=== PATIENT | female | born 1965 | race Caucasian/White ===

== ENCOUNTER 2019-05-05 07:00 | Day surgery (SDC) | payer BC ==
[~2019-05-05] VITALS: Ht 170.2 cm; Wt 86.2 kg
[~2019-05-05 07:00] MED LIST: CEFAZOLIN SOD 1 GM in D5W 50 ML IV ONE
[2019-05-05 07:47] LABS: HCG,QUAL RESULT NEGATIVE (NEGATIVE)
[2019-05-05] MEDS ORDERED: D5/0.45 NS 1,000 ML IV SCH (12:42)
[2019-05-05] MEDS ORDERED: HYDROmorphone 1 MG INJ. 1 MG/ML AMPUL IVP PRN (12:45)
[2019-05-05] MEDS ORDERED: HYDROcodone/ACETAMIN 5-325 MG TAB (NORCO/ VICODIN) PO PRN ×2 (12:45)
[2019-05-05] MEDS ORDERED: SEVOFLURANE 15 MIN GAS INH ONE (12:55)
[2019-05-05] MEDS ORDERED: fentaNYL CITRATE/PF 100 MCG/2 ML AMP ONE (12:55)
[2019-05-05] MEDS ORDERED: MIDAZOLAM HCL 5 MG/ML VIAL (VERSED) IV ONE (12:55)
[2019-05-05] MEDS ORDERED: GLYCOPYRROLATE 0.2 MG/ML VIAL ONE (12:55)
[2019-05-05] MEDS ORDERED: ONDANSETRON HCL 4 MG/2 ML VIAL ONE (12:55)
[2019-05-05] MEDS ORDERED: LR 1,000 ML IV.SOLN IV ONE (12:55)
[2019-05-05] MEDS ORDERED: NEOSTIGMINE METHYLSULFATE 1 MG/ML, 10 ML VIAL ONE (12:55)
[2019-05-05] MEDS ORDERED: ROCURONIUM BROMIDE 10 MG/ML (ZEMURON) ONE (12:55)
[2019-05-05] MEDS ORDERED: NS IRRIG SOLN 1000 ML IR ONE (12:55)
[2019-05-05] MEDS ORDERED: PROPOFOL 200MG/ 20ML VIAL (DIPRIVAN) IV ONE (12:55)
[2019-05-05] MEDS ORDERED: BUPIVACAINE /PF 0.25% 30 ML VIAL INJ ONE (12:55)
[2019-05-05 13:55] VITALS: BP_SYST 148
== END 2019-05-05 15:00 | disposition home or self-care (01) ==
LOC: SMU 07:00 → SDS 07:00 → EDSTATUS 09:15 → SDS 15:00
PROVIDERS: ATTEND Colon & Rectal Surgery
DX: D24.2 Benign neoplasm of left breast (principal); N61.0 Mastitis without abscess; N64.1 Fat necrosis of breast; E78.2 Mixed hyperlipidemia; Z98.890 Other specified postprocedural states; Z82.3 Family history of stroke; Z80.8 Family history of malignant neoplasm of other organs or systems; Z82.49 Family history of ischemic heart disease and other diseases of the circulatory system; E66.3 Overweight
CPT/HCPCS: 19281; 19301; 84703; 88305; 88307; J0690; J2250; J2405; J2704; J2710; J3010; J3490 ×2; J7060; J7120